=== PATIENT | female | born 1975 | race Caucasian/White ===

== ENCOUNTER 2017-07-04 10:07 | Emergency (ER) | payer MEDICAID ==
[~2017-07-04] VITALS: Wt 97.6 kg
[~2017-07-04 10:07] MED LIST: DENIES MEDS
[2017-07-04] MEDS: SOD CHLORIDE 0.9% 1,000 ML IV STA ×2 (10:51→11:43)
[2017-07-04] MEDS ORDERED: KETOROLAC 30 MG INJ IV STA (10:51)
--- NOTE | 2017-07-04 10:58 | ERD ---
ER Documentation Chief Complaint Chief Complaint BACK PAIN, FEVER AND CHILLS HPI This 42-year-old female who presents the emergency department today complaining of back pain body aches and fevers started last night. States she has not taken any Tylenol or Advil because in the past she has had swelling of her eyes and lips when she has taken that medication. States she feels thirsty. States that she does not have any other symptoms. Denies any dysuria, nausea vomiting or diarrhea. ROS All systems reviewed and are negative except as per history of present illness. Medications Home Meds Active Scripts Acetaminophen* (Tylophen*) 500 Mg Capsule, 1 CAP PO Q6H Y for PAIN AND OR ELEVATED TEMP, #30 CAP Prov:PATRICIA DACOSTA PA-C 07/04/17 Reported Medications [Denies Meds] No Conflict Check 02/10/11 Allergies Allergies: Coded Allergies: acetaminophen (Verified Allergy, Unknown, 07/04/17) ibuprofen (Verified Allergy, Unknown, 07/04/17) PMhx/Soc History of Surgery: No Anesthesia Reaction: No Hx Neurological Disorder: No Hx Respiratory Disorders: No Hx Cardiac Disorders: No Hx Psychiatric Problems: No Hx Miscellaneous Medical Probl: No Hx Alcohol Use: No Hx Substance Use: No Hx Tobacco Use: No Physical Exam Vitals Vital Signs Date Time Temp Pulse Resp B/P Pulse Ox O2 Delivery O2 Flow Rate FiO2 07/04/17 16:16 101.1 100 20 110/61 97 Room Air 07/04/17 14:47 101.1 104 20 101/60 97 Room Air 07/04/17 10:10 101.1 109 18 126/75 98 Physical Exam Const: obese, NAD Head: Atraumatic Eyes: Normal Conjunctiva ENT: Ears TMs normal. Nose no drainage. Throat erythema no exudate Neck: Full range of motion..~ No meningismus. Resp: Clear to auscultation bilaterally Cardio: Regular rate and rhythm, no murmurs Abd: Soft, non tender, non distended. Normal bowel sounds Skin: No petechiae or rashes Back: Lumbar spine and bilateral paraspinal tenderness or active range of motion. Ext: No cyanosis, or edema Neur: Awake and alert Psych: Normal Mood and Affect Result Diagram: 07/04/17 1122 07/04/17 1122 Results 24 hrs Laboratory Tests Test 07/04/17 11:02 07/04/17 11:17 07/04/17 11:22 07/04/17 12:15 Urine Color YELLOW Urine Clarity SLIGHTLY CLOUDY Urine pH 7.0 Urine Specific [place] 1.016 Urine Ketones NEGATIVEmg/dL Urine Nitrite NEGATIVEmg/dL Urine Bilirubin NEGATIVEmg/dL Urine Urobilinogen NEGATIVEmg/dL Urine Leukocyte Esterase NEGATIVELeu/ul Urine Microscopic RBC 1/HPF Urine Microscopic WBC 1/HPF Urine Squamous Epithelial Cells FEW/HPF Urine Hemoglobin NEGATIVEmg/dL Urine Glucose NEGATIVEmg/dL Urine Total Protein NEGATIVEmg/dl Bedside Glucose 100mg/dL White Blood Count 22.510^3/ul Red Blood Count 4.8810^6/ul Hemoglobin 14.1g/dl Hematocrit 42.1% Mean Corpuscular Volume 86.3fl Mean Corpuscular Hemoglobin 28.9pg Mean Corpuscular Hemoglobin Concent 33.5g/dl Red Cell Distribution Width 13.1% Platelet Count 92762^3/UL Mean Platelet Volume 10.7fl Neutrophils % 83.3% Lymphocytes % 9.6% Monocytes % 6.4% Eosinophils % 0.0% Basophils % 0.3% Nucleated Red Blood Cells % 0.0/100WBC Neutrophils # 18.710^3/ul Lymphocytes # 2.210^3/ul Monocytes # 1.410^3/ul Eosinophils # 0.010^3/ul Basophils # 0.110^3/ul Nucleated Red Blood Cells # 0.010^3/ul Sodium Level 139mmol/L Potassium Level 3.8mmol/L Chloride Level 106mmol/L Carbon Dioxide Level 22mmol/L Anion Gap 15 Blood Urea Nitrogen 10mg/dl Creatinine 0.59mg/dl Glucose Level 105mg/dl Calcium Level 9.1mg/dl Total Bilirubin 0.4mg/dl Direct Bilirubin 0.00mg/dl Indirect Bilirubin 0.4mg/dl Aspartate Amino Transf (AST/SGOT) 21IU/L Alanine Aminotransferase (ALT/SGPT) 31IU/L Alkaline Phosphatase 86IU/L Total Protein 7.9g/dl Albumin 3.9g/dl Globulin 4.00g/dl Albumin/Globulin Ratio 0.97 Prothrombin Time 13.2Sec Prothrombin Time Ratio 1.0 INR International Normalized Ratio 1.00 Activated Partial Thromboplast Time 32.6Sec Lactic Acid Level 1.1mmol/L Troponin I < 0.012ng/ml Current Medications Medications (Trade) Dose Ordered Sig/Lea Route PRN Reason Start Time Stop Time Status Last Admin Dose Admin Sodium Chloride (NS) 1,000 ml @ 1,000 mls/hr Q1H STAT IV 07/04/17 10:51 07/04/17 11:50 DC Ketorolac Tromethamine (Toradol) 30 mg ONCE STAT IV 07/04/17 10:51 07/04/17 10:54 DC 07/04/17 11:43 Sodium Chloride (NS) 3,030 ml BOLUS OVER 2 HOURS STAT IV* 07/04/17 11:51 07/04/17 11:55 DC 07/04/17 12:09 IV Flush 10 ml 10 ml STK-MED ONCE .ROUTE 07/04/17 13:08 07/04/17 13:09 DC 07/04/17 13:40 Sodium Chloride (NS) 100 ml @ ud STK-MED ONCE .ROUTE 07/04/17 13:08 07/04/17 13:09 DC 07/04/17 13:40 Iohexol (Omnipaque 300mg/ ml) 150 ml STK-MED ONCE .ROUTE 07/04/17 13:08 07/04/17 13:09 DC 07/04/17 13:40 Acetaminophen (Tylenol Tab) 500 mg ONCE STAT PO 07/04/17 15:10 07/04/17 15:11 DC 07/04/17 15:33 Acetaminophen (Tylenol Tab) 500 mg ONCE STAT PO 07/04/17 16:25 07/04/17 16:26 DC 07/04/17 16:37 DIAGNOSTIC IMAGING REPORT Patient: JAMES BANERJEE : 1975 Age: 42 Sex: F MR #: [id number] DOS: 07/04/17 0000 Ordering MD: PATRICIA DACOSTA PA-C Location: [facility] Room/Bed: PROCEDURE: XR Chest. CLINICAL INDICATION: Chest pain , fever TECHNIQUE: Single portable view of the chest was obtained COMPARISON: None FINDINGS: The heart and mediastinum are within normal limits. There are mild right basilar atelectatic changes. The lungs are otherwise clear. There is no pleural effusion or pneumothorax. RPTAT: AA IMPRESSION: Mild right basilar linear atelectatic changes. .Jun Boothe MD, MD Date Time Electronically viewed and signed by .Jun Boothe MD, on 07/04/2017 11: 51 .S/ CC: PATRICIA DACOSTA PA-C RUN DATE: 07/04/17 [facility] PAGE 1 RUN TIME: [id number] [place] [address] Hipolito Wilson M.D. [employer] MITCHELL#: [id number] Name: JAMES BANERJEE Age/Sex: 42/F Attend Dr: DERECK SAUER MD Acct: [id number] MR# : [id number] : 1975 Location: FTTed Admit: 07/04/17 Specimen: [id number] Status: Complete Venita: 07/04/17 Rcvd: 07/04 Source: SYLVIA Avila Descrip: Procedure Result Microbiology INFLUENZA A & B BY EIA Final INFLU A&B BY EIA INFLUENZA A NEGATIVE (Ref Range Neg) INFLUENZA B NEGATIVE (Ref Range Neg) ................................................................................ ............ Flags: Critical Hi = *H Critical Lo = *L Microbiology Abnormal = * Abnormal Hi = H Abnormal Lo = L Blood Bank Abnormal = * Susceptability Flags: S = Sensitive R = Resistant I = Intermediate END OF REPORT DIAGNOSTIC IMAGING REPORT Patient: JAMES BANERJEE : 1975 Age: 42 Sex: F MR #: [id number] DOS: 07/04/17 0000 Ordering MD: PATRICIA DACOSTA PA-C Location: [facility] Room/Bed: PROCEDURE: CT lumbar spine without contrast. CLINICAL INDICATION: Back pain, fever TECHNIQUE: CT of the lumbar spine without contrast was performed on a multidetector CT scanner, with multiplanar reformats. One or more of the following dose reduction techniques were used: Automated exposure control, adjustment in mA and / or kV according to patient size, use of iterative reconstructive technique. CTDIvol = 38 mGy and DLP = 1052 mGy-cm. COMPARISON: None available. FINDINGS: No fracture or osseous erosive/destructive changes are identified. There is gross preservation of the lumbar lordosis with intact alignment. Vertebral bodies are maintained in height. There are multilevel mild anterior osteophytes. Disc spaces are maintained in height. There is underlying congenital / developmental narrowing of the lumbar spinal canal. Paraspinal soft tissues are grossly unremarkable. T12-L1: No disc bulge/herniation, acquired central canal stenosis or foraminal narrowing is identified. L1-L2: No disc bulge/herniation is identified. There is mild facet arthropathy. No acquired central canal stenosis or foraminal narrowing is identified. L2-L3: No disc bulge/herniation is identified. There is mild facet arthropathy. No acquired central canal stenosis or foraminal narrowing is identified.. L3-L4: There is posterior disc bulging with mild osteophytes and mild facet arthropathy. No significant acquired central canal stenosis is identified. There is moderate to severe left foraminal narrowing. L4-L5: There is post disc bulging with mild osteophytes mild facet arthropathy. No significant acquired central canal stenosis is identified. There is mild right, moderate to severe left foraminal narrowing. L5-S1: There is posterior disc bulging and moderate facet arthropathy. No significant acquired central canal stenosis is identified. There is mild to moderate bilateral foraminal narrowing. IMPRESSION: 1. No acute abnormality identified. 2. Mild lumbar spondylosis/degenerative enthesopathy, with underlying congenital / developmental narrowing of the lumbar spinal canal. 3. No significant central canal stenosis identified. 4. Multilevel foraminal narrowing detailed above. RPTAT: VV .Pietro Rausch MD, MD Date Time Electronically viewed and signed by .Pietro Rausch MD, MD on 07/04/2017 13:45 .O/ CC: PATRICIA DACOSTA PA-C DIAGNOSTIC IMAGING REPORT Patient: JAMES BANERJEE : 1975 Age: 42 Sex: F MR #: [id number] DOS: 07/04/17 1209 Ordering MD: PATRICIA DACOSTA PA-C Location: [facility] Room/Bed: PROCEDURE: CT Abdomen and Pelvis with contrast. CLINICAL INDICATION: Abdominal pain. TECHNIQUE: CT scan of the abdomen and pelvis with contrast was performed on a multi-detector high-resolution CT scanner. The patient was scanned following the uncomplicated intravenous administration of 100 cc of Omnipaque 300. Coronal and sagittal reformatted images were obtained from the axial source images. One or more of the following dose reduction techniques were used: Automated exposure control, adjustment of the mA and/or kV according to patient size, use of iterative reconstruction technique. Images were reviewed on a high -resolution PACS workstation. The total exam CTDI equals 38.42, 23.68 mGy and the total exam DLP equals 2526.13 mGy-cm. COMPARISON: None available. FINDINGS: CT abdomen: Minimal bilateral lower lobe dependent atelectatic changes are present. Otherwise, the lung bases are clear. The heart size is normal, without pericardial thickening or effusion. The liver is normal in size and density without focal mass or intrahepatic biliary dilatation. The spleen is normal in size and homogeneous in density. The stomach is partially collapsed, but is grossly unremarkable. The pancreas as visualized is normal. The gallbladder is unremarkable. The biliary tree is unremarkable without evidence for biliary dilatation. The adrenal glands are symmetric and normal. The kidneys are unremarkable. No renal calculus or obstructive uropathy or mass lesion is seen. The aorta is of normal caliber. There is no retroperitoneal lymphadenopathy. The joey hepatis region is clear. The small bowel and mesentery, as visualized , are unremarkable. There is a small fat-containing umbilical hernia. CT pelvis: The small bowel loops situated within the pelvis are unremarkable. A simple appearing 5.1 x 5.0 x 5.6 cm right ovarian cyst is present. Otherwise, the pelvic organs are normal. The pelvic sidewalls and inguinal regions are clear. The sigmoid colon and rectum are unremarkable. No mass, lymphadenopathy, or free fluid is seen. The bladder is normal. The surrounding osseous structures are unremarkable. No osteolytic or osteoblastic lesion is detected. IMPRESSION: 1. No mass, lymphadenopathy, or focal acute inflammatory process is identified. 2. 5.6 cm right ovarian simple appearing cyst. Follow-up ultrasound may be obtained in 1 year. 3. Small fat-containing umbilical hernia. RPTAT: HRAA .Ramiro Sweet MD, Date Time Electronically viewed and signed by .Ramiro Sweet MD, on 07/04/2017 13:49 .A/ CC: PATRICIA DACOSTA PA-C Procedures/MDM This is a 42-year-old female presents to the emergency department today complaining of fevers and back pain and body aches that started last night. Patient denied any other symptoms however she did indicate that she was thirsty. Patient does not have a primary care doctor and is unaware of any past medical history. Did obtain laboratory work as well as a UA and influenza swab accucheck 100 Laboratory workup is within normal limits. Troponin is negative UA is negative for infection Urine was sent for culture. Urine test is negative Influenza a and B is negative Chest x -ray mild right basilar linear atelectatic changes. There is no pleural effusion or pneumothorax. Lungs are otherwise clear. Patient had elevated white blood cell count of 22 and septic workup was ordered at that time. EKG interpreted by Dr. Sauer. Rate 100 and beats per minute. No ST elevation. No QT prolongation. Sinus tachycardia. Given patient complains of back pain I did obtain a CT scan Lumbar spine CT shows no acute abnormality. There is multilevel foraminal narrowing and degenerative disc disease. 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 Paraspinal soft tissues are unremarkable. CT Abdomen pelvis with IV contrast mass, lymphadenopathy or focal acute inflammatory process. There is a 5.6 cm right ovarian simple cyst follow-up ultrasound be obtained in 1 year. There is no osteolytic or osteoblastic lesion. There is a small fat-containing umbilical hernia. Patient denied any IV drug abuse or recent injections and I have low suspicion for epidural abscess at this time. There is no evidence of pilonidal cyst or cellulitis. Had initially indicated that she was allergic to Tylenol and Motrin. Patient was given 1 Tylenol here in the emergency department and observed. She did not have any allergic reactions. Her fevers still remained 101.1 and she was therefore given [address] Sauer did see and evaluate the patient and he has asked me to discuss the patient with Dr. Marshall. Dr. Marshall has also seen and evaluated the patient and feels that although patient has a negative UA her urine is cloudy and he has recommended 1 g of Rocephin IV here in the emergency department. Neither Dr. Sauer or Dr. Marshall feel that the patient needs to be admitted to the hospital. Patient has febrile illness of uncertain etiology. Patient did report feeling better after receiving IV fluids and Toradol for pain. She may return in 48 hours for repeat blood work and to follow-up on her blood cultures. Patient will be given a prescription for Tylenol for home. At this time the patient is stable for discharge and outpatient management. Patient should follow up with their PCP in the next 1-2 days. They may return to the emergency department sooner for any persistent or worsening of symptoms. Patient understood and agreed with the plan. Departure Diagnosis: Primary Impression: Fever Fever type: unspecified Qualified Code: R50.9 - Fever, unspecified fever cause Additional Impression: Back pain Back pain location: low back pain Chronicity: unspecified Back pain laterality: unspecified Sciatica presence: without sciatica Qualified Code: M54.5 - Low back pain without sciatica, unspecified back pain laterality, unspecified chronicity Condition: PATRICIA Valdez PA-C Jul 04, 2017 10:58
[2017-07-04 11:35] LABS: ADD UMIC NO; UR ASCORBIC ACID NEGATIVE (NEGATIVE); UR BILIRUBIN (Dip) NEGATIVE (NEGATIVE); UR BLOOD (Dip) NEGATIVE (NEGATIVE); UR CLARITY SLIGHTLY CLOUDY (CLEAR); UR COLOR YELLOW (YELLOW); UR GLUCOSE (Dip) NEGATIVE (NEGATIVE); UR KETONES (Dip) NEGATIVE (NEGATIVE); UR LEUKOCYTE ESTERASE (Dip) NEGATIVE Leu/ul (NEGATIVE); UR NITRITE (Dip) NEGATIVE (NEGATIVE); UR RBC 1 /HPF (0-5); UR SPECIFIC GRAVITY (Dip) 1.016 (1.003-1.030); UR SQUAMOUS EPITHELIAL CELL FEW /HPF (FEW); UR TOTAL PROTEIN (Dip) NEGATIVE (NEGATIVE); UR UROBILINOGEN (Dip) NEGATIVE (NEGATIVE)
[2017-07-04 11:49] LABS: BASOPHIL # 0.1 10^3/ul (0.0-0.1); BASOPHILS % 0.3 % (0.0-2.0); HEMATOCRIT 42.1 % (37.0-47.0); HEMOGLOBIN 14.1 g/dl (12.0-16.0); LYMPHOCYTES # 2.2 10^3/ul (0.8-2.9); LYMPHOCYTES % 9.6 % (15.0-51.0); MEAN CORPUSCULAR HEMOGLOBIN 28.9 pg (29.0-33.0); MEAN CORPUSCULAR HGB CONC 33.5 g/dl (32.0-37.0); MEAN CORPUSCULAR VOLUME 86.3 fl (82.0-101.0); MEAN PLATELET VOLUME 10.7 fl (7.4-10.4); MONOCYTE # 1.4 10^3/ul (0.3-0.9); MONOCYTES % 6.4 % (0.0-11.0); NEUTROPHIL # 18.7 10^3/ul (1.6-7.5); NEUTROPHILS % 83.3 % (39.0-77.0); PLATELET COUNT 237 10^3/UL (140-415); RED BLOOD COUNT 4.88 10^6/ul (4.20-5.40); RED CELL DISTRIBUTION WIDTH 13.1 % (11.5-14.5); WHITE BLOOD COUNT 22.5 10^3/ul (4.8-10.8)
[2017-07-04] MEDS ORDERED: SODIUM CHLORIDE 0.9% 1L BAG IV* STA (11:51)
--- NOTE | 2017-07-04 11:51 | RADRPT ---
PROCEDURE: XR Chest. CLINICAL INDICATION: Chest pain , fever TECHNIQUE: Single portable view of the chest was obtained COMPARISON: None FINDINGS: The heart and mediastinum are within normal limits. There are mild right basilar atelectatic changes. The lungs are otherwise clear. There is no pleural effusion or pneumothorax. RPTAT: AA IMPRESSION: Mild right basilar linear atelectatic changes. .Jun Boothe MD, MD Date Time Electronically viewed and signed by .Jun Boothe MD, on 07/04/2017 11:51 .S/
[2017-07-04 12:48] LABS: PROTIME 13.2 Sec (12.2-14.2)
[2017-07-04 12:49] LABS: PARTIAL THROMBOPLASTIN TIME 32.6 Sec (25.0-35.0)
[2017-07-04 13:04] LABS: ALBUMIN 3.9 g/dl (3.3-4.9); ALBUMIN/GLOBULIN RATIO 0.97; BILIRUBIN,INDIRECT 0.4 mg/dl (0-1.1); BILIRUBIN,TOTAL 0.4 mg/dl (0.2-1.3); CALCIUM 9.1 mg/dl (8.4-10.2); CREATININE 0.59 mg/dl (0.44-1.00); POTASSIUM 3.8 mmol/L (3.5-5.1); TOTAL PROTEIN 7.9 g/dl (6.1-8.1)
[2017-07-04] MEDS ORDERED: IOHEXOL 300MG/ML 150 ML BTL ONE (13:08)
[2017-07-04] MEDS ORDERED: SOD CHLORIDE 0.9% 100 ML ONE (13:08)
--- NOTE | 2017-07-04 13:46 | RADRPT ---
PROCEDURE: CT lumbar spine without contrast. CLINICAL INDICATION: Back pain, fever TECHNIQUE: CT of the lumbar spine without contrast was performed on a multidetector CT scanner, wi th multiplanar reformats. One or more of the following dose reduction techniques were used: Automat ed exposure control, adjustment in mA and / or kV according to patient size, use of iterative recons tructive technique. CTDIvol = 38 mGy and DLP = 1052 mGy-cm. COMPARISON: None available. FINDINGS: No fracture or osseous erosive/destructive changes are identified. There is gross preservation of th e lumbar lordosis with intact alignment. Vertebral bodies are maintained in height. There are multi level mild anterior osteophytes. Disc spaces are maintained in height. There is underlying congeni leora / developmental narrowing of the lumbar spinal canal. Paraspinal soft tissues are grossly unrema rkable. T12-L1: No disc bulge/herniation, acquired central canal stenosis or foraminal narrowing is identifi ed. L1-L2: No disc bulge/herniation is identified. There is mild facet arthropathy. No acquired central canal stenosis or foraminal narrowing is identified. L2-L3: No disc bulge/herniation is identified. There is mild facet arthropathy. No acquired central canal stenosis or foraminal narrowing is identified.. L3-L4: There is posterior disc bulging with mild osteophytes and mild facet arthropathy. No signifi cant acquired central canal stenosis is identified. There is moderate to severe left foraminal narro wing. L4-L5: There is post disc bulging with mild osteophytes mild facet arthropathy. No significant acqui red central canal stenosis is identified. There is mild right, moderate to severe left foraminal n arrowing. L5-S1: There is posterior disc bulging and moderate facet arthropathy. No significant acquired centr al canal stenosis is identified. There is mild to moderate bilateral foraminal narrowing. IMPRESSION: 1. No acute abnormality identified. 2. Mild lumbar spondylosis/degenerative enthesopathy, with underlying congenital / developmental na rrowing of the lumbar spinal canal. 3. No significant central canal stenosis identified. 4. Multilevel foraminal narrowing detailed above. RPTAT: VV .Edward Oh, MD, MD Date Time Electronically viewed and signed by .Pietro Rausch MD, on 07/04/2017 13:45 .O/
--- NOTE | 2017-07-04 13:49 | RADRPT ---
PROCEDURE: CT Abdomen and Pelvis with contrast. CLINICAL INDICATION: Abdominal pain. TECHNIQUE: CT scan of the abdomen and pelvis with contrast was performed on a multi-detector high- resolution CT scanner. The patient was scanned following the uncomplicated intravenous administrati on of 100 cc of Omnipaque 300. Coronal and sagittal reformatted images were obtained from the axial source images. One or more of the following dose reduction techniques were used: Automated exposur e control, adjustment of the mA and/or kV according to patient size, use of iterative reconstructio n technique. Images were reviewed on a high-resolution PACS workstation. The total exam CTDI equals 38.42, 23.68 mGy and the total exam DLP equals 2526.13 mGy-cm. COMPARISON: None available. FINDINGS: CT abdomen: Minimal bilateral lower lobe dependent atelectatic changes are present. Otherwise, the lung bases are clear. The heart size is normal, without pericardial thickening or effusion. The liver is normal in size and density without focal mass or intrahepatic biliary dilatation. The spleen is normal in size and homogeneous in density. The stomach is partially collapsed, but is rose mary ssly unremarkable. The pancreas as visualized is normal. The gallbladder is unremarkable. The delbert iary tree is unremarkable without evidence for biliary dilatation. The adrenal glands are symmetric and normal. The kidneys are unremarkable. No renal calculus or obstructive uropathy or mass lesio n is seen. The aorta is of normal caliber. There is no retroperitoneal lymphadenopathy. The joey hepatis re gion is clear. The small bowel and mesentery, as visualized, are unremarkable. There is a small fat -containing umbilical hernia. CT pelvis: The small bowel loops situated within the pelvis are unremarkable. A simple appearing 5.1 x 5.0 x 5 .6 cm right ovarian cyst is present. Otherwise, the pelvic organs are normal. The pelvic sidewalls and inguinal regions are clear. The sigmoid colon and rectum are unremarkable. No mass, lymphadeno pravin, or free fluid is seen. The bladder is normal. The surrounding osseous structures are unremarkable. No osteolytic or osteoblastic lesion is detect ed. IMPRESSION: 1. No mass, lymphadenopathy, or focal acute inflammatory process is identified. 2. 5.6 cm right ovarian simple appearing cyst. Follow-up ultrasound may be obtained in 1 year. 3. Small fat-containing umbilical hernia. RPTAT: HRAA .Ramiro Sweet MD, MD Date Time Electronically viewed and signed by .Ramiro Sweet MD, MD on 07/04/2017 13:49 .A/
[2017-07-04] MEDS ORDERED: ACETAMINOPHEN 500 MG TAB PO STA ×2 (15:10→16:25)
[2017-07-04] MEDS ORDERED: ACET500C5 PO (17:44)
[2017-07-04 18:04] VITALS: BP 103/56; PULSE 94; RESP 20; TEMP 100.2
--- NOTE | 2017-07-06 16:59 | ERD ---
ER Documentation Chief Complaint Chief Complaint BACK PAIN, FEVER AND CHILLS HPI I placed a call to the patient today to follow-up and see how she was feeling and she reported that her fevers were better but she still had some back pain. Patient does have degenerative disc disease. She also mentioned that she did have a sore throat. I explained to the patient she may return for further evaluation should she not be feeling better. Blood cultures and UA culture were negative. ROS All systems reviewed and are negative except as per history of present illness. Medications Home Meds Active Scripts Acetaminophen* (Tylophen*) 500 Mg Capsule, 1 CAP PO Q6H Y for PAIN AND OR ELEVATED TEMP, #30 CAP Prov:PATRICIA DACOSTA PA-C 07/04/17 Reported Medications [Denies Meds] No Conflict Check 02/10/11 Allergies Allergies: Coded Allergies: ibuprofen (Verified Allergy, Unknown, 07/04/17) PMhx/Soc History of Surgery: No Anesthesia Reaction: No Hx Neurological Disorder: No Hx Respiratory Disorders: No Hx Cardiac Disorders: No Hx Psychiatric Problems: No Hx Miscellaneous Medical Probl: No Hx Alcohol Use: No Hx Substance Use: No Hx Tobacco Use: No Smoking Status: Never smoker Physical Exam Vitals Vital Signs Date Time Temp Pulse Resp B/P Pulse Ox O2 Delivery O2 Flow Rate FiO2 07/04/17 18:04 100.2 94 20 103/56 98 Room Air 07/04/17 16:16 101.1 100 20 110/61 97 Room Air 07/04/17 14:47 101.1 104 20 101/60 97 Room Air 07/04/17 10:10 101.1 109 18 126/75 98 Physical Exam Const: [] Head: Atraumatic Eyes: Normal Conjunctiva ENT: Normal External Ears, Nose and Mouth. Neck: Full range of motion..~ No meningismus. Resp: Clear to auscultation bilaterally Cardio: Regular rate and rhythm, no murmurs Abd: Soft, non tender, non distended. Normal bowel sounds Skin: No petechiae or rashes Back: No midline or flank tenderness Ext: No cyanosis, or edema Neur: Awake and alert Psych: Normal Mood and Affect Result Diagram: 07/04/17 1122 07/04/17 1122 Results 24 hrs Laboratory Tests Test 07/04/17 11:02 07/04/17 11:17 07/04/17 11:22 07/04/17 12:15 Urine Color YELLOW Urine Clarity SLIGHTLY CLOUDY Urine pH 7.0 Urine Specific [place] 1.016 Urine Ketones NEGATIVEmg/dL Urine Nitrite NEGATIVEmg/dL Urine Bilirubin NEGATIVEmg/dL Urine Urobilinogen NEGATIVEmg/dL Urine Leukocyte Esterase NEGATIVELeu/ul Urine Microscopic RBC 1/HPF Urine Microscopic WBC 1/HPF Urine Squamous Epithelial Cells FEW/HPF Urine Hemoglobin NEGATIVEmg/dL Urine Glucose NEGATIVEmg/dL Urine Total Protein NEGATIVEmg/dl Bedside Glucose 100mg/dL White Blood Count 22.510^3/ul Red Blood Count 4.8810^6/ul Hemoglobin 14.1g/dl Hematocrit 42.1% Mean Corpuscular Volume 86.3fl Mean Corpuscular Hemoglobin 28.9pg Mean Corpuscular Hemoglobin Concent 33.5g/dl Red Cell Distribution Width 13.1% Platelet Count 79236^3/UL Mean Platelet Volume 10.7fl Neutrophils % 83.3% Lymphocytes % 9.6% Monocytes % 6.4% Eosinophils % 0.0% Basophils % 0.3% Nucleated Red Blood Cells % 0.0/100WBC Neutrophils # 18.710^3/ul Lymphocytes # 2.210^3/ul Monocytes # 1.410^3/ul Eosinophils # 0.010^3/ul Basophils # 0.110^3/ul Nucleated Red Blood Cells # 0.010^3/ul Sodium Level 139mmol/L Potassium Level 3.8mmol/L Chloride Level 106mmol/L Carbon Dioxide Level 22mmol/L Anion Gap 15 Blood Urea Nitrogen 10mg/dl Creatinine 0.59mg/dl Glucose Level 105mg/dl Calcium Level 9.1mg/dl Total Bilirubin 0.4mg/dl Direct Bilirubin 0.00mg/dl Indirect Bilirubin 0.4mg/dl Aspartate Amino Transf (AST/SGOT) 21IU/L Alanine Aminotransferase (ALT/SGPT) 31IU/L Alkaline Phosphatase 86IU/L Total Protein 7.9g/dl Albumin 3.9g/dl Globulin 4.00g/dl Albumin/Globulin Ratio 0.97 Prothrombin Time 13.2Sec Prothrombin Time Ratio 1.0 INR International Normalized Ratio 1.00 Activated Partial Thromboplast Time 32.6Sec Lactic Acid Level 1.1mmol/L Troponin I < 0.012ng/ml Current Medications Medications (Trade) Dose Ordered Sig/Lea Route PRN Reason Start Time Stop Time Status Last Admin Dose Admin Sodium Chloride (NS) 1,000 ml @ 1,000 mls/hr Q1H STAT IV 07/04/17 10:51 07/04/17 11:50 DC Ketorolac Tromethamine (Toradol) 30 mg ONCE STAT IV 07/04/17 10:51 07/04/17 10:54 DC 07/04/17 11:43 Sodium Chloride (NS) 3,030 ml BOLUS OVER 2 HOURS STAT IV* 07/04/17 11:51 07/04/17 11:55 DC 07/04/17 12:09 IV Flush 10 ml 10 ml STK-MED ONCE .ROUTE 07/04/17 13:08 07/04/17 13:09 DC 07/04/17 13:40 Sodium Chloride (NS) 100 ml @ ud STK-MED ONCE .ROUTE 07/04/17 13:08 07/04/17 13:09 DC 07/04/17 13:40 Iohexol (Omnipaque 300mg/ ml) 150 ml STK-MED ONCE .ROUTE 07/04/17 13:08 07/04/17 13:09 DC 07/04/17 13:40 Acetaminophen (Tylenol Tab) 500 mg ONCE STAT PO 07/04/17 15:10 07/04/17 15:11 DC 07/04/17 15:33 Acetaminophen (Tylenol Tab) 500 mg ONCE STAT PO 07/04/17 16:25 07/04/17 16:26 DC 07/04/17 16:37 Departure Diagnosis: Primary Impression: Fever Fever type: unspecified Qualified Code: R50.9 - Fever, unspecified fever cause Additional Impression: Back pain Back pain location: low back pain Chronicity: unspecified Back pain laterality: unspecified Sciatica presence: without sciatica Qualified Code: M54.5 - Low back pain without sciatica, unspecified back pain laterality, unspecified chronicity Condition: Fair Patient Instructions: Back Pain (Acute Or Chronic), Fever Control (Adult) Referrals: [facility] Usted se kan hecho un examen mdico de control que le indica que no est en cooper condicin que requiera tratamiento urgente en el Departamento de Emergencia. Un estudio ms profundo y el tratamiento de saavedra condicin pueden esperar sin ningn riesgo hasta que usted sea atendida/o en el consultorio de saavedra mdico o cooper cl yaw. Es responsabilidad suya arreglar cooper nora para el seguimiento del marc. MANEJO DE CONDICIONES NO URGENTES EN EL FUTURO 1) Si usted tiene un mdico de atencin primaria: Usted debera llamar a saavedra mdico de atencin primaria antes de venir al departamento de emergencia. Despus de las horas de consultorio, saavedra doctor o saavedra asociado/a est disponible por telfono. El mdico o enfermero de manny en el servicio telefnico puede asesorarle por juan jose medio para atender el problema, o marc contrario se puede programar cooper nora. 2) Si usted no tiene un mdico de atencin primaria: Llame al mdico o clnica de referencia que aparece abajo mindy las horas de consultorio para hacer cooper nora para que le vean. CLINICAS: [facility] [phone] [facility] [phone] [address] [facility]. [facility] [phone] [address] [facility] [place] [id number] [phone] [facility] [place] [phone] 40[address] [facility]. [phone] [address] Additional Instructions: Llame al doctor MAANA y mario cooper NORA PARA DENTRO DE 1-2 RODRIGUEZ.Dgale a la secretaria que nosotros le instruimos hacer esta nora.Avise o llame si saavedra condicin se empeora antes de la nora. Regresa aqui si peor o no mejor. Take Tylenol for fever or pain. Return in 48 hours for recheck. PATRICIA DACOSTA PA-C Jul 06, 2017 16:59
== END 2017-07-04 18:25 | disposition home or self-care (01) ==
LOC: FTE 10:07
DX: M54.5 Low back pain (principal); R50.9 Fever, unspecified; R07.9 Chest pain, unspecified
CPT/HCPCS: 36415; 71010; 72131; 74177; 80053; 81001; 82962; 83605; 84484; 85025; 85610; 85730; 87040; 87086; 87400; 93005; 96374; J1885; J7030; Q9967; Z7502; Z7610; 81003

== ENCOUNTER 2017-07-06 18:35 | Emergency (ER) | payer MEDICAID ==
[~2017-07-06] VITALS: Ht 167.6 cm; Wt 96.9 kg
[~2017-07-06 18:35] MED LIST changes: +ACET500C5 PO
[2017-07-06 18:41] VITALS: Ht 167.6 cm; Wt 96.9 kg
[2017-07-06] MEDS ORDERED: MED4DP PO (20:54)
[2017-07-06] MEDS ORDERED: AMOX500C2 PO (20:54)
[2017-07-06] MEDS ORDERED: PHEN177S43 MT (20:54)
[2017-07-06 21:04] VITALS: BP 119/64; PULSE 86; RESP 19; TEMP 98.7
--- NOTE | 2017-07-06 21:31 | ERD ---
ER Documentation Chief Complaint Chief Complaint sore throat x 3 days HPI Patient is a 42-year-old female presenting to the emergency department with complaints of sore throat which began this morning. She has noticed no improvement in her symptoms over the course of the day. Symptoms are worse with swallowing. She denies sick contacts. She is taking no medication for relief of symptoms she denies fevers, cough, or other symptoms currently. ROS All systems reviewed and are negative except as per history of present illness. Medications Home Meds Active Scripts Methylprednisolone* (Medrol* DOSE PACK) 4 Mg/Dose-Pack Tab.ds.pk, 4 MG PO . DIRECTED, #1 PACKET Prov:HELEN GONZALES PA-C 07/06/17 Phenol* (Chloraseptic* [place]) 177 Ml [place].pump, 2 SPRAY MT Q2H Y for SORE THROAT, #1 BOTTLE Prov:HELEN GONZALES PA-C 07/06/17 Amoxicillin* (Amoxicillin*) 500 Mg Cap, 500 MG PO TID for 10 Days, #30 CAP Prov:HELEN GONZALES PA-C 07/06/17 Acetaminophen* (Tylophen*) 500 Mg Capsule, 1 CAP PO Q6H Y for PAIN AND OR ELEVATED TEMP, #30 CAP Prov:PATRICIA DACOSTA PA-C 07/04/17 Reported Medications [Denies Meds] No Conflict Check 02/10/11 Allergies Allergies: Coded Allergies: ibuprofen (Verified Allergy, Unknown, 07/04/17) PMhx/Soc History of Surgery: No Anesthesia Reaction: No Hx Neurological Disorder: No Hx Respiratory Disorders: No Hx Cardiac Disorders: No Hx Psychiatric Problems: No Hx Miscellaneous Medical Probl: No Hx Alcohol Use: No Hx Substance Use: No Hx Tobacco Use: No Smoking Status: Never smoker Physical Exam Vitals Vital Signs Date Time Temp Pulse Resp B/P Pulse Ox O2 Delivery O2 Flow Rate FiO2 07/06/17 21:04 98.7 86 19 119/64 98 Room Air 07/06/17 18:41 98.3 92 20 123/68 98 Physical Exam Const: Nontoxic, well-appearing female in no acute distress. Head: Atraumatic Eyes: Normal Conjunctiva ENT: Normal External Ears, Nose and Mouth. There is bilateral tonsillar hypertrophy, erythema, and exudate. The airway is clear. No uvular deviation noted. Neck: Full range of motion..~ No meningismus. There is bilateral anterior cervical lymphadenopathy on palpation. Ext: No cyanosis, or edema Neur: Awake and alert Psych: Normal Mood and Affect Procedures/MDM Patient is a 42-year-old female presenting for sore throat. The patient has 3 out of 4 Centor criteria including anterior cervical lymphadenopathy, lack of cough, and tonsillar exudate. I will treat her as an outpatient with a prescription for amoxicillin, phenol, and Medrol Dosepak. The patient was in agreement with the discharge diagnosis and plan. Low suspicion for peritonsillar abscess, sepsis, or other emergencies. No evidence of life-threatening pathology at time of discharge. Pt/family in agreement with discharge plan/diagnosis. Pt/family advised to return immediately with any new or worsening symptoms. Follow-up with primary care physician within the next 1-2 days. Disclaimer: Inadvertent spelling and grammatical errors are likely due to EHR/ dictation software use and do not reflect on the overall quality of patient care. Also, please note that the electronic time recorded on this note does not necessarily reflect the actual time of the patient encounter. Departure Diagnosis: Primary Impression: Pharyngitis Pharyngitis/tonsillitis etiology: unspecified etiology Qualified Code: J02.9 - Pharyngitis, unspecified etiology Condition: Fair Patient Instructions: Pharyngitis, Strep (Presumed) Referrals: [facility] Usted se kan hecho un examen mdico de control que le indica que no est en cooper condicin que requiera tratamiento urgente en el Departamento de Emergencia. Un estudio ms profundo y el tratamiento de saavedra condicin pueden esperar sin ningn riesgo hasta que usted sea atendida/o en el consultorio de saavedra mdico o cooper cl yaw. Es responsabilidad suya arreglar cooper deshawn para el seguimiento del marc. MANEJO DE CONDICIONES NO URGENTES EN EL FUTURO 1) Si usted tiene un mdico de atencin primaria: Usted debera llamar a saavedra mdico de atencin primaria antes de venir al departamento de emergencia. Despus de las horas de consultorio, saavedra doctor o saavedra asociado/a est disponible por telfono. El mdico o enfermero de manny en el servicio telefnico puede asesorarle por juan jose medio para atender el problema, o marc contrario se puede programar cooper deshawn. 2) Si usted no tiene un mdico de atencin primaria: Llame al mdico o clnica de referencia que aparece abajo mindy las horas de consultorio para hacer cooper deshawn para que le vean. CLINICAS: [place] [address] [phone] [facility] [phone] [address] [facility] [phone] [address] [facility]. [facility] [phone] [address] [facility] [place] [phone] [facility] [phone] [address] Additional Instructions: No mas mejor en 2-3 deluna, regresar. Mas peor en 24 horas, regresear rapidamente. Ir a doctor primario en 1-2 deluna. Usar instrucciones cuando daniel medicamento. HELEN GONZALES PA-C Jul 06, 2017 21:31
--- NOTE | 2017-07-06 21:31 | ERD ---
ER Documentation Chief Complaint Chief Complaint sore throat x 3 days HPI Patient is a 42-year-old female presenting to the emergency department with complaints of sore throat which began this morning. She has noticed no improvement in her symptoms over the course of the day. Symptoms are worse with swallowing. She denies sick contacts. She is taking no medication for relief of symptoms she denies fevers, cough, or other symptoms currently. ROS All systems reviewed and are negative except as per history of present illness. Medications Home Meds Active Scripts Methylprednisolone* (Medrol* DOSE PACK) 4 Mg/Dose-Pack Tab.ds.pk, 4 MG PO . DIRECTED, #1 PACKET Prov:HELEN GONZALES PA-C 07/06/17 Phenol* (Chloraseptic* [place]) 177 Ml [place].pump, 2 SPRAY MT Q2H Y for SORE THROAT, #1 BOTTLE Prov:HELEN GONZALES PA-C 07/06/17 Amoxicillin* (Amoxicillin*) 500 Mg Cap, 500 MG PO TID for 10 Days, #30 CAP Prov:HELEN GONZALES PA-C 07/06/17 Acetaminophen* (Tylophen*) 500 Mg Capsule, 1 CAP PO Q6H Y for PAIN AND OR ELEVATED TEMP, #30 CAP Prov:PATRICIA DACOSTA PA-C 07/04/17 Reported Medications [Denies Meds] No Conflict Check 02/10/11 Allergies Allergies: Coded Allergies: ibuprofen (Verified Allergy, Unknown, 07/04/17) PMhx/Soc History of Surgery: No Anesthesia Reaction: No Hx Neurological Disorder: No Hx Respiratory Disorders: No Hx Cardiac Disorders: No Hx Psychiatric Problems: No Hx Miscellaneous Medical Probl: No Hx Alcohol Use: No Hx Substance Use: No Hx Tobacco Use: No Smoking Status: Never smoker Physical Exam Vitals Vital Signs Date Time Temp Pulse Resp B/P Pulse Ox O2 Delivery O2 Flow Rate FiO2 07/06/17 21:04 98.7 86 19 119/64 98 Room Air 07/06/17 18:41 98.3 92 20 123/68 98 Physical Exam Const: Nontoxic, well-appearing female in no acute distress. Head: Atraumatic Eyes: Normal Conjunctiva ENT: Normal External Ears, Nose and Mouth. There is bilateral tonsillar hypertrophy, erythema, and exudate. The airway is clear. No uvular deviation noted. Neck: Full range of motion..~ No meningismus. There is bilateral anterior cervical lymphadenopathy on palpation. Ext: No cyanosis, or edema Neur: Awake and alert Psych: Normal Mood and Affect Procedures/MDM Patient is a 42-year-old female presenting for sore throat. The patient has 3 out of 4 Centor criteria including anterior cervical lymphadenopathy, lack of cough, and tonsillar exudate. I will treat her as an outpatient with a prescription for amoxicillin, phenol, and Medrol Dosepak. The patient was in agreement with the discharge diagnosis and plan. Low suspicion for peritonsillar abscess, sepsis, or other emergencies. No evidence of life-threatening pathology at time of discharge. Pt/family in agreement with discharge plan/diagnosis. Pt/family advised to return immediately with any new or worsening symptoms. Follow-up with primary care physician within the next 1-2 days. Disclaimer: Inadvertent spelling and grammatical errors are likely due to EHR/ dictation software use and do not reflect on the overall quality of patient care. Also, please note that the electronic time recorded on this note does not necessarily reflect the actual time of the patient encounter. Departure Diagnosis: Primary Impression: Pharyngitis Pharyngitis/tonsillitis etiology: unspecified etiology Qualified Code: J02.9 - Pharyngitis, unspecified etiology Condition: Fair Patient Instructions: Pharyngitis, Strep (Presumed) Referrals: [facility] Usted se kan hecho un examen mdico de control que le indica que no est en cooper condicin que requiera tratamiento urgente en el Departamento de Emergencia. Un estudio ms profundo y el tratamiento de saavedra condicin pueden esperar sin ningn riesgo hasta que usted sea atendida/o en el consultorio de saavedra mdico o cooper cl yaw. Es responsabilidad suya arreglar cooper deshawn para el seguimiento del marc. MANEJO DE CONDICIONES NO URGENTES EN EL FUTURO 1) Si usted tiene un mdico de atencin primaria: Usted debera llamar a saavedra mdico de atencin primaria antes de venir al departamento de emergencia. Despus de las horas de consultorio, saavedra doctor o saavedra asociado/a est disponible por telfono. El mdico o enfermero de manny en el servicio telefnico puede asesorarle por juan jose medio para atender el problema, o marc contrario se puede programar cooper deshawn. 2) Si usted no tiene un mdico de atencin primaria: Llame al mdico o clnica de referencia que aparece abajo mindy las horas de consultorio para hacer cooper deshawn para que le vean. CLINICAS: [place] [address] [phone] [facility] [phone] [address] [facility] [phone] [address] [facility]. [facility] [phone] [address] [facility] [place] [phone] [facility] [phone] [address] Additional Instructions: No mas mejor en 2-3 deluna, regresar. Mas peor en 24 horas, regresear rapidamente. Ir a doctor primario en 1-2 deluna. Usar instrucciones cuando daniel medicamento. HELEN GONZALES PA-C Jul 06, 2017 21:31
--- NOTE | 2017-07-06 21:31 | ERD ---
ER Documentation Chief Complaint Chief Complaint sore throat x 3 days HPI Patient is a 42-year-old female presenting to the emergency department with complaints of sore throat which began this morning. She has noticed no improvement in her symptoms over the course of the day. Symptoms are worse with swallowing. She denies sick contacts. She is taking no medication for relief of symptoms she denies fevers, cough, or other symptoms currently. ROS All systems reviewed and are negative except as per history of present illness. Medications Home Meds Active Scripts Methylprednisolone* (Medrol* DOSE PACK) 4 Mg/Dose-Pack Tab.ds.pk, 4 MG PO . DIRECTED, #1 PACKET Prov:HELEN GONZALES PA-C 07/06/17 Phenol* (Chloraseptic* [place]) 177 Ml [place].pump, 2 SPRAY MT Q2H Y for SORE THROAT, #1 BOTTLE Prov:HELEN GONZALES PA-C 07/06/17 Amoxicillin* (Amoxicillin*) 500 Mg Cap, 500 MG PO TID for 10 Days, #30 CAP Prov:HELEN GONZALES PA-C 07/06/17 Acetaminophen* (Tylophen*) 500 Mg Capsule, 1 CAP PO Q6H Y for PAIN AND OR ELEVATED TEMP, #30 CAP Prov:PATRICIA DACOSTA PA-C 07/04/17 Reported Medications [Denies Meds] No Conflict Check 02/10/11 Allergies Allergies: Coded Allergies: ibuprofen (Verified Allergy, Unknown, 07/04/17) PMhx/Soc History of Surgery: No Anesthesia Reaction: No Hx Neurological Disorder: No Hx Respiratory Disorders: No Hx Cardiac Disorders: No Hx Psychiatric Problems: No Hx Miscellaneous Medical Probl: No Hx Alcohol Use: No Hx Substance Use: No Hx Tobacco Use: No Smoking Status: Never smoker Physical Exam Vitals Vital Signs Date Time Temp Pulse Resp B/P Pulse Ox O2 Delivery O2 Flow Rate FiO2 07/06/17 21:04 98.7 86 19 119/64 98 Room Air 07/06/17 18:41 98.3 92 20 123/68 98 Physical Exam Const: Nontoxic, well-appearing female in no acute distress. Head: Atraumatic Eyes: Normal Conjunctiva ENT: Normal External Ears, Nose and Mouth. There is bilateral tonsillar hypertrophy, erythema, and exudate. The airway is clear. No uvular deviation noted. Neck: Full range of motion..~ No meningismus. There is bilateral anterior cervical lymphadenopathy on palpation. Ext: No cyanosis, or edema Neur: Awake and alert Psych: Normal Mood and Affect Procedures/MDM Patient is a 42-year-old female presenting for sore throat. The patient has 3 out of 4 Centor criteria including anterior cervical lymphadenopathy, lack of cough, and tonsillar exudate. I will treat her as an outpatient with a prescription for amoxicillin, phenol, and Medrol Dosepak. The patient was in agreement with the discharge diagnosis and plan. Low suspicion for peritonsillar abscess, sepsis, or other emergencies. No evidence of life-threatening pathology at time of discharge. Pt/family in agreement with discharge plan/diagnosis. Pt/family advised to return immediately with any new or worsening symptoms. Follow-up with primary care physician within the next 1-2 days. Disclaimer: Inadvertent spelling and grammatical errors are likely due to EHR/ dictation software use and do not reflect on the overall quality of patient care. Also, please note that the electronic time recorded on this note does not necessarily reflect the actual time of the patient encounter. Departure Diagnosis: Primary Impression: Pharyngitis Pharyngitis/tonsillitis etiology: unspecified etiology Qualified Code: J02.9 - Pharyngitis, unspecified etiology Condition: Fair Patient Instructions: Pharyngitis, Strep (Presumed) Referrals: [facility] Usted se kan hecho un examen mdico de control que le indica que no est en cooper condicin que requiera tratamiento urgente en el Departamento de Emergencia. Un estudio ms profundo y el tratamiento de saavedra condicin pueden esperar sin ningn riesgo hasta que usted sea atendida/o en el consultorio de saavedra mdico o cooper cl yaw. Es responsabilidad suya arreglar cooper deshawn para el seguimiento del marc. MANEJO DE CONDICIONES NO URGENTES EN EL FUTURO 1) Si usted tiene un mdico de atencin primaria: Usted debera llamar a saavedra mdico de atencin primaria antes de venir al departamento de emergencia. Despus de las horas de consultorio, saavedra doctor o saavedra asociado/a est disponible por telfono. El mdico o enfermero de manny en el servicio telefnico puede asesorarle por juan jose medio para atender el problema, o marc contrario se puede programar cooper deshawn. 2) Si usted no tiene un mdico de atencin primaria: Llame al mdico o clnica de referencia que aparece abajo mindy las horas de consultorio para hacer cooper deshawn para que le vean. CLINICAS: [place] [address] [phone] [facility] [phone] [address] [facility] [phone] [address] [facility]. [facility] [phone] [facility] [place] [phone] [facility] [phone] [address] Additional Instructions: No mas mejor en 2-3 deluna, regresar. Mas peor en 24 horas, regresear rapidamente. Ir a doctor primario en 1-2 deluna. Usar instrucciones cuando daniel medicamento. HELEN GONZALES PA-C Jul 06, 2017 21:31
== END 2017-07-06 21:05 | disposition home or self-care (01) ==
LOC: FTE 18:35
DX: J02.9 Acute pharyngitis, unspecified (principal)
CPT/HCPCS: 99284

== ENCOUNTER 2017-11-01 16:32 | Emergency (ER) | END 2017-11-01 20:12 | disposition home or self-care (01) ==

== ENCOUNTER 2018-07-11 05:06 | Emergency (ER) | END 2018-07-11 07:10 | disposition home or self-care (01) ==